=== PATIENT | male | born 1945 | race Caucasian/White ===

== ENCOUNTER 2017-10-28 10:26 | Day surgery (SDC) | payer OTHER, MEDICARE ==
[2017-10-27 16:21] VITALS: BMI 26.6
[2017-10-28 10:48] VITALS: TEMP 97.6
[2017-10-28] MEDS ORDERED: MIDAZOLAM HCL 2 MG/2 ML SINGLE DOSE VIAL ONE (12:22)
[2017-10-28] MEDS ORDERED: PROPOFOL 20 ML ONE (12:23)
[2017-10-28] MEDS ORDERED: SUCCINYLCHOLINE CHLORIDE 200 MG/10 ML VIAL ONE (12:23)
[2017-10-28] MEDS ORDERED: ceFAZolin SODIUM 1 GM VIAL IVPB ONE (12:28)
[2017-10-28] MEDS ORDERED: ceFAZolin SODIUM 1 GM VIAL ONE (12:28)
[2017-10-28] MEDS ORDERED: BUPIVACAINE 0.25% /EPI 1:200,000 10 ML VIAL PNB ONE (12:28)
[2017-10-28] MEDS ORDERED: BUPIVACAINE HCL/EPINEPHRINE/PF 30 ML VIAL IJ ONE (12:45)
[2017-10-28] MEDS ORDERED: DEXAMETHASONE SOD PHOSPHATE 4 MG/1 ML VIAL ONE (13:16)
[2017-10-28] MEDS ORDERED: DEXAMETHASONE SOD PHOSPHATE 4 MG/1 ML VIAL NR ONE (13:28)
[2017-10-28 16:38] VITALS: BP 113/69; PULSE 67
--- NOTE | 2017-10-29 00:27 | OP ---
DATE OF OPERATION: DATE OF DICTATION: 10/28/2017 SURGEON: Charli Emanuel DPM ANESTHESIA TYPE: MAC ANESTHESIOLOGIST: DIAGNOSES: 1. Contracture dorsum right foot. 2. Tailor's bunion right foot. 3. Synovitis, peroneal tendon, right foot. 4. Contracture of metatarsophalangeal joints 2, 3, 4 right. PROCEDURE: Patient is brought to the OR, placed on the OR table in a supine position. Neuroleptic anesthesia was administered, and an ankle block is performed using 0.25% Marcaine with epinephrine 1:200,000 in the form of an ankle block. The right foot and ankle was elevated for 5 minutes where a pneumatic ankle tourniquet was elevated to effect hemostasis . The right foot was prepped and draped in a usual sterile fashion. Procedure number 1.skin plasty dorsum right foot. Attention is directed to a previous longitudinal cicatrix on the dorsum of the right foot. The linear incision is made paralleling the cicatrix. Z-plasty was performed. The distal portion of the Z source from distal lateral to proximal medial and the proximal portion went from proximal medial to distal lateral at a 60 degree angle to the longitudinal incision. Upon incising the Z, two triangular flaps were rotated approximately 90 degrees to reorientate the cicatrix from longitudinal to the transverse. Skin was closed using 4-0 nylon. Procedure number 2 Tailors bunionectomy right foot. Attention was directed to the 5th metatarsophalangeal joint right foot. A linear incision was made over the 5th MPJ dorsal lateral. The incision was deepened down through subcutaneous tissue, maintaining hemostasis as necessary for 4-0 Vicryl ligature. Superficial fascia was freed from the deep fascia. A linear incision was made into the joint capsule of the 5th MPJ. Subcapsular dissection was completed. The head of the 5th metatarsal was delivered into the wound site. Lateral portion that appeared to be hypertrophic was excised using the sagittal saw. All bony edges were rasped smooth, and the site was flushed with sterile saline. Repair of the joint capsule was performed using subcutaneous closure 4-0 Vicryl, skin closure with 4-0 nylon. Procedure number 3, arthroplasty PIPJ 5th digit right middle lateral hemiphalangectomy. Attention was directed to the PIPJ of the 5th digit right, two converging semielliptical incisions were created and a wedge of skin was removed in toto. Transverse incision was made into the PIPJ of the 5th digit. The medial and lateral collateral ligaments were sectioned. The head of the proximal phalanx was elevated into the wound site and resected using a sagittal saw. Attention was then directed to the lateral half of the middle phalanx which was resected as well. All bony edges were rasped smooth, and wound site was flushed with sterile saline. Closure was performed using 4-0 Vicryl for extensor tendon repair and 4-0 nylon for skin. Procedure number 4 Peroneal tenosynovectomy right foot. Attention was directed to the lateral aspect of the foot by the insertion of the peroneal tendon. Linear incision was made down through into the insertion of the peroneal tendon. The incision was deepened down to the peroneal tendon sheath. A linear incision was made into the sheath. Hypertrophic synovitis was debrided out of the wound and the tendon proximally. A complete debridement was performed of this hypertrophic synovitis. Small longitudinal tears were excised and repaired, closure is performed using 4-0 Vicryl for tendon sheath, subcutaneous closure 4-0 nylon for skin. Procedure number 5, tenotomy and capsulotomy, second metatarsophalangeal joint right foot. A linear incision was made between the 2nd and 3rd MPJs. Incision was deepened down through subcutaneous tissue, maintaining hemostasis as necessary 4 -0 Vicryl ligature. Superficial fascia is freed from the deep fascia. The extensor tendon complex of the 2nd MPJ was identified, and open Z-plasty was performed. U-shaped capsulotomy was made into the 2nd MPJ. Contracture was noted reduced, extensor tendon complex repair is performed using 4-0 Vicryl. Procedure number 6 tenotomy and capsulotomy, 3rd metatarsophalangeal joint right foot. With exposure gained from the previous procedure, attention was directed to the extensor tendon complex of the 3rd MPJ, and open Z-plasty was performed. Then a U-shaped capsulotomy was made into the 3rd MPJ. Medial and lateral collateral ligaments were sectioned, and the contracture was noted reduced, repair of the extensor tendon complex was performed using 4-0 Vicryl, subcutaneous closure 4-0 Vicryl, skin closure 4-0 nylon. Procedure number 7, tenotomy and capsulotomy, 4th metatarsophalangeal joint right foot. A linear incision was made over the 4th MPJ. Incision was deepened down through subcutaneous tissue, maintaining hemostasis as necessary with 4-0 Vicryl ligature. Superficial fascia is freed from the deep fascia. The extensor tendon complex was identified, and open Z-plasty was performed. Then a U-shaped capsulotomy was made into the 4th MPJ. Medial and lateral collateral ligaments were sectioned, and the contracture was noted reduced, the wound site was flushed with sterile saline. Extensor tendon complex was performed using 4-0 Vicryl, subcutaneous closure 4-0 Vicryl, skin closure 4-0 nylon. Post operatively all surgical site were covered sterile 4x4s shanda and a coband wrap . The pneumatic tourniquet was deflated and a normal hyperemic flush noted to return to all digits of the right foot. CHARLI EMANUEL DPM [id number] MTDD
--- NOTE | 2017-11-01 17:13 | PATH ---
Surgical Pathology Report Patient Name: ELIZABETH PEREZ [facility]. Rec. #: [id number] /Age/Gender: 1945 (Age: 71) / M Account: [id number] Location: [facility] SUR[facility] Taken: 10/28/2017 Received: 10/28/2017 Reported: 11/01/2017 Physicians: Charli Avery DPM Specimen(s) Received A: SKIN RIGHT FOOT B: BONE RIGHT FOOT Clinical History Right Tommy's bunionectomy Final Diagnosis A. SKIN, FOOT, RIGHT, EXCISION: SKIN WITHOUT SIGNIFICANT PATHOLOGIC FINDINGS. B. BONE, FOOT, RIGHT, TOMMY'S BUNIONECTOMY: BONE WITH DEGENERATIVE CHANGES AND FATTY MARROW. Electronically Signed Kay Flowers M.D. Gross Description A. Received in formalin labeled "skin of right foot," are 3 singletary skin fragments ranging from 0.5 x 0.4 x 0.2 cm to 1.7 x 0.7 x 0.2 cm. The epidermal surfaces are unremarkable. Rotary Derrick Operator sections are submitted in one cassette. B. Received in formalin labeled "bone of right foot," are 3 singletary portions of bone ranging from 0.6-1.5 cm in greatest dimension. Rotary Derrick Operator sections are submitted in one cassette, following decalcification. 10/29/2017 [facility]10/29/2017
== END 2017-10-28 16:55 | disposition home or self-care (01) ==
LOC: JASU-SURG 10:26
PROVIDERS: ATTEND Podiatrist
PROC: 0QBQ0ZZ Excision of Right Toe Phalanx, Open Approach (ICD-10-PCS; 2017-10-28)
PROC: 0LBV0ZZ Excision of Right Foot Tendon, Open Approach (ICD-10-PCS; 2017-10-28)
PROC: 0SNM0ZZ Release Right Metatarsal-Phalangeal Joint, Open Approach (ICD-10-PCS; 2017-10-28)
PROC: 0SNM0ZZ Release Right Metatarsal-Phalangeal Joint, Open Approach (ICD-10-PCS; 2017-10-28)
PROC: 0SNM0ZZ Release Right Metatarsal-Phalangeal Joint, Open Approach (ICD-10-PCS; 2017-10-28)
PROC: 0LQV0ZZ Repair Right Foot Tendon, Open Approach (ICD-10-PCS; 2017-10-28)
PROC: 0LQV0ZZ Repair Right Foot Tendon, Open Approach (ICD-10-PCS; 2017-10-28)
PROC: 0LQV0ZZ Repair Right Foot Tendon, Open Approach (ICD-10-PCS; 2017-10-28)
PROC: 0HN Skin and Breast, Release (ICD-10-PCS; principal; 2017-10-28 12:00)
PROC: 0QBN0ZZ Excision of Right Metatarsal, Open Approach (ICD-10-PCS; 2017-10-28 12:00)
DX: M24.574 Contracture, right foot (principal); M21.621 Bunionette of right foot; M65.871 Other synovitis and tenosynovitis, right ankle and foot; M24.50 Contracture, unspecified joint; L90.5 Scar conditions and fibrosis of skin
CPT/HCPCS: 73630-TC-RT-FY; 88302-TC; 88305-TC; 88311-TC